=== PATIENT | female | born 1985 | race Caucasian/White ===

== ENCOUNTER 2016-06-17 12:19 | Emergency (ER) | payer MEDICAID ==
[~2016-06-17] VITALS: Wt 69.0 kg
[2016-06-17] MEDS ORDERED: KETOROLAC 60 MG INJ IM STA (12:48)
[2016-06-17 13:07] LABS: URINE BLOOD (Dip) POC Negative (NEGATIVE)
--- NOTE | 2016-06-17 14:10 | RADRPT ---
PROCEDURE: XR Lumbar Spine. CLINICAL INDICATION: Generalized pain. TECHNIQUE: AP, lateral and cone-down lateral view of the lumbar spine were obtained. COMPARISON: No prior studies are available for comparison. FINDINGS: There are 5 lumbar vertebra which appear anatomically aligned. The intervertebral disk spaces, neur al canal and nerve root foramina are normal. There is mild straightening of the lumbar curvature. IMPRESSION: 1. Unremarkable lumbar spine. RPTAT:AAJJ Physician Betty Date Time Electronically viewed and signed by Physician Betty on 06/17/2016 14:10 /
[2016-06-17] MEDS ORDERED: TRAM50TA2 PO (14:15)
[2016-06-17] MEDS ORDERED: IBUP-1542 PO (14:15)
--- NOTE | 2016-06-17 14:22 | ERD ---
ER Documentation Chief Complaint Date/Time DATE: 06/17/16 TIME: 14:20 Chief Complaint BACK PAIN X 3 DAYS HPI This 30-year-old female complains of low back pain for last 3 days. Is in the lumbar area. She denies any history of trauma or inciting events. She denies any fevers, vomiting, urinary complaints, bowel or bladder incontinence. She denies any previous history of back pain. ROS All systems reviewed and are negative except as per history of present illness. Medications Home Meds Active Scripts Tramadol HCl (Tramadol HCl) 50 Mg Tablet, 50 MG PO Q4 Y for PAIN, #15 TAB Prov:LYNN PHELPS MD 06/17/16 Ibuprofen* (Motrin*) 600 Mg Tab, 600 MG PO Q6, #15 TAB Prov:LYNN PHELPS MD 06/17/16 Allergies Allergies: Coded Allergies: No Known Allergy (Verified Allergy, Unknown, 10/08/07) PMhx/Soc Medical and Surgical Hx: pt denies Medical Hx, pt denies Surgical Hx Hx Alcohol Use: No Hx Substance Use: No Hx Tobacco Use: No Physical Exam Vitals Vital Signs Date Time Temp Pulse Resp B/P Pulse Ox O2 Delivery O2 Flow Rate FiO2 06/17/16 12:32 98.0 88 18 155/70 99 Physical Exam Const: [] Alert, [id number] . Head: Atraumatic Eyes: Normal Conjunctiva ENT: Normal External Ears, Nose and Mouth. Neck: Full range of motion..~ No meningismus. Resp: Clear to auscultation bilaterally Cardio: Regular rate and rhythm, no murmurs Abd: Soft, non tender, non distended. Normal bowel sounds Skin: No petechiae or rashes Back: No midline or flank tenderness. Some mild generalized L3-L4 paraspinous muscles. There is no appreciable midline tenderness or deformities. Ext: No cyanosis, or edema Neur: Awake and alert. Normal gait without appreciable focal neurologic deficits Psych: Normal Mood and Affect Results 24 hrs Laboratory Tests Test 06/17/16 13:07 Bedside Urine pH (LAB) 6.0 Bedside Urine Protein (LAB) Negative Bedside Urine Glucose (UA) Negative Bedside Urine Ketones (LAB) Negative Bedside Urine Blood Negative Bedside Urine Nitrite (LAB) Negative Bedside Urine Leukocyte Esterase (L Negative Current Medications Medications (Trade) Dose Ordered Sig/Dia Route PRN Reason Start Time Stop Time Status Last Admin Dose Admin Ketorolac Tromethamine (Toradol) 60 mg ONCE STAT IM 06/17/16 12:48 06/17/16 12:50 DC 06/17/16 13:08 Procedures/MDM Urine is negative for infection and hCG is negative. X-ray LS-Spine 3V Interpreted by me: Bones: [No fracture] Joints: [No dislocation] Foreign body: [None]. Impression-normal lumbar spine x-ray Patient was given Toradol 60 mg IM. Patient presents with low back pain for last 3 days without evidence to suggest epidural abscess, UTI, neurologic deficits, additional emergent causes of low back pain. She likely is muscular skeletal low back pain will be treated with tramadol, ibuprofen, instructions for back exercises instruction to follow-up with her primary doctor this week. She should otherwise return to the ER for new or worsening symptoms. The patient was stable with no new complaints during the ER course. Clinically, there is no current evidence to suggest meningitis, sepsis, acute abdomen, pneumonia, acute coronary syndrome, pulmonary embolism, or any other emergent condition appearing to require further evaluation or hospitalization. The patient should certainly return for any new or worsening symptoms per the aftercare instructions. They should otherwise follow-up with her primary care doctor for reevaluation this week. Departure Diagnosis: Primary Impression: Back pain Back pain location: low back pain Chronicity: acute Back pain laterality: left Sciatica presence: without sciatica Qualified Code: M54.5 - Acute left- sided low back pain without sciatica Condition: Stable Patient Instructions: Back Exercises, Lumbar, Back Pain (Acute Or Chronic) Additional Instructions: Examines normal hoy. Cheque otro vez con lira doctor primario en el proximo oneill or regresa para mas o nueva simptomas. LYNN PHELPS MD Jun 17, 2016 14:22
== END 2016-06-17 14:25 | disposition home or self-care (01) ==
LOC: FTE 12:19
DX: M54.5 Low back pain (principal)
CPT/HCPCS: 72100; 81003; 96372; J1885; Z7502

== ENCOUNTER 2016-09-16 21:55 | Emergency (ER) | payer MEDICAID ==
[~2016-09-16] VITALS: Ht 154.9 cm; Wt 66.0 kg
[~2016-09-16 21:55] MED LIST: IBUP-1542 PO; TRAM50TA2 PO
[2016-09-16 22:03] VITALS: Ht 154.9 cm; Wt 66.0 kg
[2016-09-16] MEDS ORDERED: KETOROLAC 15 MG INJ IM STA (22:38)
[2016-09-16 22:54] LABS: URINE BLOOD (Dip) POC Trace-lysed (NEGATIVE)
[2016-09-16 23:07] LABS: BASOPHIL # 0.1 10^3/ul (0.0-0.1); BASOPHILS % 0.5 % (0.0-2.0); EOSINOPHILS # 0.1 10^3/ul (0.0-0.5); EOSINOPHILS % 1.3 % (0.0-7.0); HEMATOCRIT 39.8 % (37.0-47.0); HEMOGLOBIN 13.3 g/dl (12.0-16.0); LYMPHOCYTES # 3.9 10^3/ul (0.8-2.9); LYMPHOCYTES % 40.3 % (15.0-51.0); MEAN CORPUSCULAR HGB CONC 33.4 g/dl (32.0-37.0); MEAN CORPUSCULAR VOLUME 89.6 fl (82.0-101.0); MEAN PLATELET VOLUME 9.7 fl (7.4-10.4); MONOCYTE # 0.7 10^3/ul (0.3-0.9); MONOCYTES % 7.4 % (0.0-11.0); NEUTROPHIL # 4.9 10^3/ul (1.6-7.5); NEUTROPHILS % 50.1 % (39.0-77.0); PLATELET COUNT 297 10^3/UL (140-415); RED BLOOD COUNT 4.44 10^6/ul (4.20-5.40); RED CELL DISTRIBUTION WIDTH 12.5 % (11.5-14.5); WHITE BLOOD COUNT 9.7 10^3/ul (4.8-10.8)
[2016-09-16 23:09] LABS: ADD SCAN DIFF NO
--- NOTE | 2016-09-16 23:21 | ERD ---
ER Documentation Chief Complaint Date/Time DATE: 09/16/16 TIME: 23:17 Chief Complaint MID AP RADIATING TO LEFT BACK, 4 WEEKS +BLEEDING. HPI This 4 week female presents to emergency department today for dysuria, left-sided low back pain radiating to abdominal pain 2 days without nausea and vomiting. 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 ROS All systems reviewed and are negative except as per history of present illness. Medications Home Meds Active Scripts Acetaminophen* (Tylophen*) 500 Mg Capsule, 2 CAP PO Q8H Y for PAIN AND OR ELEVATED TEMP, #20 CAP Prov:SERGEYMARTA 09/17/16 Tramadol HCl (Tramadol HCl) 50 Mg Tablet, 50 MG PO Q4 Y for PAIN, #15 TAB Prov:LYNN PHELPS MD 06/17/16 Ibuprofen* (Motrin*) 600 Mg Tab, 600 MG PO Q6, #15 TAB Prov:LYNN PHELPS MD 06/17/16 Allergies Allergies: Coded Allergies: No Known Allergy (Verified Allergy, Unknown, 10/08/07) PMhx/Soc Medical and Surgical Hx: pt denies Medical Hx, pt denies Surgical Hx Hx Alcohol Use: No Hx Substance Use: No Hx Tobacco Use: No Smoking Status: Never smoker Physical Exam Vitals Vital Signs Date Time Temp Pulse Resp B/P Pulse Ox O2 Delivery O2 Flow Rate FiO2 09/16/16 22:03 99.7 94 18 140/63 98 Vitals stable, triage notes reviewed Physical Exam Const: Well-appearing well-hydrated no acute distress Head: Atraumatic Eyes: Normal Conjunctiva ENT: Normal External Ears, Nose and Mouth. Neck: Resp: Clear to auscultation bilaterally Cardio: Regular rate and rhythm, no murmurs Abd: Soft 's abdomen nontender, negative CVA tenderness Skin: Back: Negative flank pain Ext: Neur: Awake and alert Psych: Normal Mood and Affect Result Diagram: 09/16/16225209/16/162252 Results 24 hrs Laboratory Tests Test 09/16/16 22:53 09/16/16 22:58 09/16/16 23:00 White Blood Count 9.710^3/ul Red Blood Count 4.4410^6/ul Hemoglobin 13.3g/dl Hematocrit 39.8% Mean Corpuscular Volume 89.6fl Mean Corpuscular Hemoglobin 30.0pg Mean Corpuscular Hemoglobin Concent 33.4g/dl Red Cell Distribution Width 12.5% Platelet Count 56439^3/UL Mean Platelet Volume 9.7fl Neutrophils % 50.1% Lymphocytes % 40.3% Monocytes % 7.4% Eosinophils % 1.3% Basophils % 0.5% Nucleated Red Blood Cells % 0.0/100WBC Neutrophils # 4.910^3/ul Lymphocytes # 3.910^3/ul Monocytes # 0.710^3/ul Eosinophils # 0.110^3/ul Basophils # 0.110^3/ul Nucleated Red Blood Cells # 0.010^3/ul Sodium Level 139mmol/L Potassium Level 4.1mmol/L Chloride Level 98mmol/L Carbon Dioxide Level 25mmol/L Anion Gap 20 Blood Urea Nitrogen 10mg/dl Creatinine 0.60mg/dl Glucose Level 102mg/dl Calcium Level 9.9mg/dl Total Bilirubin 0.1mg/dl Direct Bilirubin 0.00mg/dl Indirect Bilirubin 0.1mg/dl Aspartate Amino Transf (AST/SGOT) 22IU/L Alanine Aminotransferase (ALT/SGPT) 25IU/L Alkaline Phosphatase 60IU/L Total Protein 8.7g/dl Albumin 5.0g/dl Globulin 3.70g/dl Albumin/Globulin Ratio 1.35 Beta HCG, Quantitative 7920.3mIU/ml Bedside Urine pH (LAB) 7.0 Bedside Urine Protein (LAB) Negative Bedside Urine Glucose (UA) Negative Bedside Urine Ketones (LAB) Negative Bedside Urine Blood Trace-lysed Bedside Urine Nitrite (LAB) Negative Bedside Urine Leukocyte Esterase (L Negative Urine Color STRAW Urine Clarity CLEAR Urine pH 7.0 Urine Specific [place] 1.006 Urine Ketones NEGATIVEmg/dL Urine Nitrite NEGATIVEmg/dL Urine Bilirubin NEGATIVEmg/dL Urine Urobilinogen NEGATIVEmg/dL Urine Leukocyte Esterase NEGATIVELeu/ul Urine Hemoglobin NEGATIVEmg/dL Urine Glucose NEGATIVEmg/dL Urine Total Protein NEGATIVEmg/dl Current Medications Medications (Trade) Dose Ordered Sig/Dia Route PRN Reason Start Time Stop Time Status Last Admin Dose Admin Ketorolac Tromethamine (Toradol) 15 mg ONCE STAT IM 09/16/16 22:38 09/17/16 00:12 DC Acetaminophen (Tylenol Tab) 650 mg ONCE ONCE PO 09/17/16 00:30 09/17/16 00:31 Interpretation text CBC shows no evidence of hemorrhage or infection Chemistry shows no evidence of significant electrolyte abnormalities or renal insufficiency Beta hCG quantitative 7920.3 Procedures/MDM PROCEDURE: Renal US. CLINICAL INDICATION: Left flank pain. TECHNIQUE: Multiple sonographic images of the kidneys and urinary bladder were obtained. The images were reviewed on a PACS workstation. COMPARISON: No prior studies are available for comparison. FINDINGS: The kidneys are well visualized. The right kidney measures 10.5 x 4.0 x 4.8 cm. The left kidney measures 10.3 x 5.4 x 4.8 cm. There is a nonobstructing 3 mm left renal stone. There is no evidence for obstructive uropathy. The urinary bladder is normal in appearance. IMPRESSION: 1. No hydronephrosis. 2. Nonobstructing 3 mm left renal stone. 3. Normal appearance of the urinary bladder. PROCEDURE: Obstetrical ultrasound. CLINICAL INDICATION: Pelvic pain. TECHNIQUE: Multiple sonographic images of the pelvis were obtained with transabdominal and endovaginal technique. Images were obtained with ashby scale and color Doppler. COMPARISON: None. FINDINGS: There is an intrauterine gestational sac with a yolk sac identified. No pole is identified. The mean sac diameter averages 0.73 cm, compatible with 5 weeks and 2 days gestation. A small subchorionic collection is identified. There is no pelvic free fluid. The right ovary measures 3.7 x 1.8 x 2.2 cm and the left ovary measures 3.3 x 2.0 x 1.8 cm. There is normal flow to both ovaries. There is no suspicious adnexal mass identified. IMPRESSION: Intrauterine gestational sac with a yolk sac identified, compatible with 5 weeks and 2 days. No pole is identified. Short-term follow-up ultrasound is recommended. Small subchorionic hemorrhage. .Mark Anthony Ibrahim MD, MD Date Time Electronically viewed and signed by .Mark Anthony Ibrahim MD, MD on 09/16/2016 23:48 RPTAT: HTAR .Rakan Garcia MD, Date Time Electronically viewed and signed by .Rakan Garcia MD, on 09/16/2016 23:27 Pleasant 31-year-old female presents to emergency department today for evaluation of dysuria and left low back pain, patient reports pain is radiating to her abdomen, pain is been present 2 days without nausea or vomiting. Patient reports that she is 4 weeks . 2 para 100. Patient reports vaginal bleeding described as spotting on toilet paper. Threatened miscarriage likely. OB ultrasound documents intrauterine gestational sac with a yolk sac identified compatible with 5 week and 2 day. No pole is identified. Short-term follow-up ultrasound is recommended, small subchorionic hemorrhage. Beta quantitative normal for gestational age 7920.3 mlU/ml Pyelonephritis, cholecystitis, pancreatitis not suspected. nephrolithiasis, renal calculi, renal colic, urinary tract infection are all part of a working differential. Renal ultrasound demonstrates no hydronephrosis, nonobstructive 3 mm left renal stone. Normal appearance of the urinary bladder. Urinalysis negative for leukocytosis or nitrates negative for urinary tract infection. Patient treated in emergency department with Tylenol, p.o. fluids recommended. Patient will be discharged home to continue fluids, Tylenol for pain. Return to emergency department for increased vaginal bleeding, back pain nausea or vomiting. I feel the patient is stable for discharge at this time with outpatient management by primary care physician. I have discussed results, examination findings, the treatment plan with the patient and family present prior to discharge. Indications for emergent reevaluation, side effects of medication were also discussed. All questions were answered. Patient verbalizes understanding and agrees with plan of care. Departure Diagnosis: Primary Impression: Vaginal bleeding in Trimester: first trimester Qualified Code: O46.91 - Vaginal bleeding in , first trimester Additional Impression: Left nephrolithiasis MARTA RINCON Sep 16, 2016 23:21
[2016-09-16 23:26] LABS: ADD UMIC NO; UR ASCORBIC ACID NEGATIVE (NEGATIVE); UR BILIRUBIN (Dip) NEGATIVE (NEGATIVE); UR BLOOD (Dip) NEGATIVE (NEGATIVE); UR CLARITY CLEAR (CLEAR); UR COLOR STRAW (YELLOW); UR GLUCOSE (Dip) NEGATIVE (NEGATIVE); UR KETONES (Dip) NEGATIVE (NEGATIVE); UR LEUKOCYTE ESTERASE (Dip) NEGATIVE Leu/ul (NEGATIVE); UR NITRITE (Dip) NEGATIVE (NEGATIVE); UR SPECIFIC GRAVITY (Dip) 1.006 (1.003-1.030); UR TOTAL PROTEIN (Dip) NEGATIVE (NEGATIVE); UR UROBILINOGEN (Dip) NEGATIVE (NEGATIVE)
--- NOTE | 2016-09-16 23:28 | RADRPT ---
PROCEDURE: Renal US. CLINICAL INDICATION: Left flank pain. TECHNIQUE: Multiple sonographic images of the kidneys and urinary bladder were obtained. The imag es were reviewed on a PACS workstation. COMPARISON: No prior studies are available for comparison. FINDINGS: The kidneys are well visualized. The right kidney measures 10.5 x 4.0 x 4.8 cm. The left kidney finesse ures 10.3 x 5.4 x 4.8 cm. There is a nonobstructing 3 mm left renal stone. There is no evidence for obstructive uropathy. The urinary bladder is normal in appearance. IMPRESSION: 1. No hydronephrosis. 2. Nonobstructing 3 mm left renal stone. 3. Normal appearance of the urinary bladder. RPTAT: HTAR .Rakan Garcia MD, MD Date Time Electronically viewed and signed by .Rakan Garcia MD, MD on 09/16/2016 23:27 .R/
[2016-09-16 23:38] LABS: ALBUMIN/GLOBULIN RATIO 1.35; BILIRUBIN,INDIRECT 0.1 mg/dl (0-1.1); BILIRUBIN,TOTAL 0.1 mg/dl (0.2-1.3); CALCIUM 9.9 mg/dl (8.4-10.2); CREATININE 0.6 mg/dl (0.44-1.00); POTASSIUM 4.1 mmol/L (3.5-5.1); TOTAL PROTEIN 8.7 g/dl (6.1-8.1)
--- NOTE | 2016-09-16 23:48 | RADRPT ---
PROCEDURE: Obstetrical ultrasound. CLINICAL INDICATION: Pelvic pain. TECHNIQUE: Multiple sonographic images of the pelvis were obtained with transabdominal and endova ginal technique. Images were obtained with ashby scale and color Doppler. COMPARISON: None. FINDINGS: There is an intrauterine gestational sac with a yolk sac identified. No pole is identified. The mean sac diameter averages 0.73 cm, compatible with 5 weeks and 2 days gestation. A small subch orionic collection is identified. There is no pelvic free fluid. The right ovary measures 3.7 x 1.8 x 2.2 cm and the left ovary measu res 3.3 x 2.0 x 1.8 cm. There is normal flow to both ovaries. There is no suspicious adnexal mass identified. IMPRESSION: Intrauterine gestational sac with a yolk sac identified, compatible with 5 weeks and 2 days. No feta l pole is identified. Short-term follow-up ultrasound is recommended. Small subchorionic hemorrhage. .Mark Anthony Ibrahim MD, Date Time Electronically viewed and signed by .Mark Anthony Ibrahim MD, MD on 09/16/2016 23:48 .T/
[2016-09-17] MEDS ORDERED: ACET500C5 PO (00:23)
[2016-09-17] MEDS ORDERED: ACETAMINOPHEN 325 MG TAB PO ONE (00:30)
== END 2016-09-17 00:36 | disposition home or self-care (01) ==
LOC: FTE 21:55
DX: O20.9 Hemorrhage in early pregnancy, unspecified (principal); O26.831 Pregnancy related renal disease, first trimester; N20.0 Calculus of kidney; R10.2 Pelvic and perineal pain; Z3A.01 Less than 8 weeks gestation of pregnancy
CPT/HCPCS: 36415; 76775; 76801; 76817; 80053; 81003; 84702; 85025; J1885; Z7502; Z7610